=== PATIENT | male | born 1965 | race Caucasian/White ===

== ENCOUNTER → 2018-03-07 | Day surgery (SDC) | payer BC ==
[~2018-03-07] MED LIST: CURCUMIN1 GM PO; FENTANYL CITRATE/PF 100MCG/2 ML INJ ONE; FIBER CON PO; GLUCOSAMINE CH1 EAC2 PO; HYOSCYAMINE SULFATE 0.5 MG/ML AMP ONE; LIDOCAINE HCL 2% LOCAL INJ 5 ML SDV VIAL INJ ONE; LORATADINE10 MG PO; MIDAZOLAM HCL 2 MG/2 ML VIAL ONE; MULTIVITAMINS1 EAC7 PO; OMEGA 3 FISH O1 EACH PO; PROBIOTIC PO; PROPOFOL IV EMULSION 10 MG/ML 50 ML VIAL ONE
--- OUTSIDE RECORDS SUMMARY | 2018-03-07 07:15 | XMS REPORT | Clinical Summary ---
Author Author [facility] Organization [facility] Address Unknown Phone Unavailable Care Team Providers Care Pad Machine Feeder Name Role Phone Richa Lui MD PCP Allergies No Known Allergies Current Medications Prescription Sig. Disp. Refills Start End Date Status Date glucosamine sulfate Take 1 tablet by mouth Active (GLUCOSAMINE) 500 mg daily. tablet TURMERIC (CURCUMIN MISC) 1 tablet daily. 05/21/20 Discontin 17 ued polycarbophil (FIBERCON) Take 2 tablets by mouth 05/21/20 Discontin 625 mg tablet daily. 17 ued HYDROcodone-acetaminophen Take 1 tablet by mouth 30 tablet 0 05/21/20 05/31/20 (NORCO) 10-325 mg per every 4 (four) hours as 17 17 tablet needed for moderate pain for up to 10 days. Max Daily Amount: 6 tablets Active Problems Problem Noted Date Reducible right inguinal hernia 05/21/2017 Encounters Date Type Specialty Care Team Description 05/21/2017 [facility] General Surgery Pepito Castaneda MD Encounter 05/21/2017 Anesthesia General Surgery Eligio Rajput Event 05/21/2017 Procedure Pass General Surgery 05/21/2017 Surgery General Surgery Pepito Castaneda MD REPAIR, HERNIA, INGUINAL RIGHT WITH MESH 05/19/2017 Pre-Admit Pre-Admission Testing Pepito Castaneda MD Pre- op testing (Primary Testing Dx) Appointment after 03/06/2017 Family History Medical History Relation Name Comments Diabetes Brother Hypertension Brother Heart disease Father Stroke Father Heart disease Mother Relation Name Status Comments Brother Brother Father Mother Social History Tobacco Use Types Packs/Day Years Used Date Never Smoker Alcohol Use Drinks/Week oz/Week Comments No Sex Assigned at Date Recorded Not on file Last Filed Vital Signs Vital Sign Reading Time Taken Blood Pressure 146/68 05/21/2017 5:00 PM CDT Pulse 68 05/21/2017 5:00 PM CDT Temperature 36.7 C (98 F) 05/21/2017 11:31 AM CDT Respiratory Rate 18 05/21/2017 5:00 PM CDT Oxygen Saturation 98% 05/21/2017 5:00 PM CDT Inhaled Oxygen - - Concentration Weight 110 kg (242 lb) 05/21/2017 7:36 AM CDT Height 188 cm (6' 2") 05/21/2017 7:36 AM CDT Body Mass Index 31.07 05/21/2017 7:36 AM CDT Plan of Treatment Health Maintenance Due Date Last Done Comments COLONOSCOPY 2013 INFLUENZA VACCINE 06/22/2018 Implants Implanted Type Area Rail 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 Device Expiration Model / Identifier Date Serial / Lot Plug Hrnia Rpr Perfix Xl 1.6x2in - Surgical Right: [employer] 2021 [id number] / [id number] Mesh or Abdomen, / Implanted: 05/21/2017 (Quantity not Tissue Middle [id number] on file) Barrier Quadrant/N Products on Specific Procedures Procedure Name Priority Date/Time Associated Diagnosis Comments MI AN ELECTIVE Routine 05/21/2017 SUPRAGLOTTIC AIRWAY 8:58 AM CDT Procedure Note - Eligio Rajput - 05/21/2017 8:57 AM CDT Airway Date/Time: 05/21/2017 8:37 AM Performed by: ROSARIO VARNER Authorized by: ROSARIO VARNER Location: OR Urgency: Elective Difficult Airway: No Anesthesio logist: ROSARIO VARNER Other Anesthesia Staff: ELIGIO RAJPUT Performed by: anesthesio logist and other anesthesia staff Preoxygena breanna with 100% O2: Yes C-spine Precaution s Maintained Throughout : Yes Mask Ventilatio n: Easy mask Final Airway Type: Supraglott ic airway Final LMA: Unique LMA Size: 5 Number of Attempts at Approach: 1 REPAIR, HERNIA, INGUINAL 05/21/2017 Reducible right inguinal RIGHT WITH MESH 8:15 AM CDT hernia after 03/06/2017 Results * POC glucose (05/21/2017 12:56 PM) Component Value Ref Range POC glucose 153 (H) 65 - 99 mg/dL Comment: Meter ID: [id number] Publications Sales Representative: Naresh Nguyen Specimen Performing Laboratory [facility] DEPARTMENT OF PATHOLOGY AND GENOMIC MEDICINE [address] [place] [address] * ECG 12 lead (05/21/2017 12:54 PM) Only the most recent of 2 results within the time period is included. Component Value Ref Range Ventricular rate 75 Atrial rate 75 MI interval 174 QRSD interval 114 QT interval 426 QTC interval 475 P axis 1 61 QRS axis 1 -12 T wave axis 29 EKG impression Normal sinus rhythm-Incomplete right bundle branch block-Minimal voltage criteria for LVH, may be normal variant-Borderline ECG-In automated comparison with ECG of 21-MAY-2017 12:53,-Previous ECG has undetermined rhythm, needs review- Specimen Performing Laboratory [facility] [address] [place] [address] * CBC with platelet and differential (05/19/2017 4:18 PM) Component Value Ref Range WBC 6.21 4.50 - 11.00 k/uL RBC 5.05 4.40 - 6.00 m/uL HGB 15.0 14.0 - 18.0 g/dL HCT 44.5 41.0 - 51.0 % MCV 88.1 82.0 - 100.0 fL MCH 29.7 27.0 - 34.0 pg MCHC 33.7 31.0 - 37.0 g/dL RDW - SD 41.0 37.0 - 55.0 fL MPV 9.5 8.8 - 13.2 fL Platelet count 257 150 - 400 k/uL Nucleated RBC 0.00 /100 WBC Neutrophils 53.7 39.0 - 69.0 % Lymphocytes 31.1 25.0 - 45.0 % Monocytes 12.2 (H) 0.0 - 10.0 % Eosinophils 2.3 0.0 - 5.0 % Basophils 0.5 0.0 - 1.0 % Immature granulocytes 0.2Comment: "Immature granulocytes" 0.0 - 1.0 % (promyelocytes, myelocytes, metamyelocytes) Specimen Performing Laboratory Blood [facility] DEPARTMENT OF PATHOLOGY AND GENOMIC MEDICINE [address] [place] [address] after 03/06/2017 Insurance Payer Benefit Subscriber ID Type Phone Address Plan / Group BCBS BCBS xxxxxxxxx PPO CHOICE PPO/NELL RAPHAEL PPO
--- NOTE | 2018-03-07 10:49 | Operative Report ---
DATE OF PROCEDURE: March 07, 2018 REFERRING PHYSICIAN: Dr. Fairchild PROCEDURES PERFORMED 1. Esophagogastroduodenoscopy with biopsies. 2. Colonoscopy with polypectomy and biopsies. INDICATIONS FOR EGD: Heartburn, indigestion and nausea. INDICATIONS FOR COLONOSCOPY: Colorectal cancer screening, personal history of colon polyps, history of loose stools. MEDICATION: Patient was done under MAC. Please see anesthesiologist's note. PROCEDURE: With the patient in the left lateral decubitus position, the flexible fiberoptic Olympus gastroscope was introduced into the esophagus under direct visualization without any difficulty. There was some patchy erythema noted in the distal esophagus. A single erosion also was noted also in the distal esophagus. A focal nodularity was noted in the GE junction that was biopsied. The scope was then advanced with ease into the stomach traversing a small hiatal hernia. Mucosa overlying the antrum and the body revealed some patchy erythema, low-grade to moderate edema and biopsies were obtained and sent to stain for H. pylori. Pylorus appeared to be of normal contour and shape. It was intubated with ease. The scope was advanced all the way to the 2nd portion of the duodenum. Biopsies were obtained from the proximal 2nd portion to rule out sprue considering the patient's history of diarrhea. The mucosa overlying the duodenal bulb appeared to be within normal limits. The scope was then withdrawn back into the stomach and retroflexed. The mucosa overlying the fundus appeared to be within normal limits. A minute submucosal nodule was noted at the cardia that was biopsied. The scope was then straightened out. The stomach was decompressed. The scope was subsequently withdrawn. Patient tolerated the procedure well. IMPRESSION 1. Distal esophagitis. 2. Focal nodularity at gastroesophageal junction, biopsied. 3. Small hiatal hernia. 4. Submucosal nodule, cardia, biopsied. 5. Gastritis, biopsied. Biopsies sent to stain for Helicobacter pylori. 6. Rule out sprue. PLAN: Follow up histology. Initiate Protonix 40 mg 1 p.o. q.a.m. and a.c. Patient was then turned around. After adequate lubrication of the anal canal, a flexible fiberoptic Olympus colonoscope was inserted into the rectum with ease and advanced all the way to the cecum. Mucosa overlying the cecum appeared to be within normal limits. The ileocecal valve was intubated. The scope was advanced into the terminal ileum. Biopsies were obtained. The scope was then withdrawn back into the colon. It was then withdrawn slowly and a minute polyp was hot biopsied from the proximal ascending colon. The rest of the ascending, transverse and descending appeared to be within normal limits. There was some diverticular disease noted in the proximal sigmoid colon. Mucosa overlying the sigmoid and rectum revealed some patchy areas of erythema and low-grade to moderate edema, and biopsies were obtained. One polyp was snared from the distal sigmoid colon. The scope was then retroflexed into the distal rectum and small internal hemorrhoids were noted, none of which was actively bleeding. The scope was then straightened out. The rectosigmoid area, as well as the distal rectal area were decompressed. The scope was subsequently withdrawn after securing an adequate stool specimen that was sent for the appropriate stool studies. Patient tolerated the procedure well. IMPRESSION 1. Ascending colon polyp, hot biopsied. 2. Diverticulosis. 3. Sigmoid colon polyp, snared. 4. Proctosigmoiditis, biopsies obtained. 5. Internal hemorrhoids, none actively bleeding. PLAN: Follow up histology. Follow up stool studies. Initiate Bentyl 10 mg 1 p.o. t.i.d. VSL #3 DS 1 p.o. daily. Patient will need a followup colonoscopy in 3 years. Job#: [id number] MICAH
[2018-03-07 14:18] LABS: WBC,FECAL (FECAL LACTOFERRIN) POSITIVE (NEGATIVE)
[2018-03-07 14:19] LABS: C DIFFICILE TOXIN A&B AMP PROB **POSITIVE** (NEGATIVE)
== END | disposition home or self-care (01) ==
LOC: OR 07:13
PROVIDERS: ATTEND Internal Medicine Gastroenterology
DX: Z12.11 Encounter for screening for malignant neoplasm of colon (principal); D12.2 Benign neoplasm of ascending colon; K29.70 Gastritis, unspecified, without bleeding; K21.0 Gastro-esophageal reflux disease with esophagitis; K22.10 Ulcer of esophagus without bleeding; K44.9 Diaphragmatic hernia without obstruction or gangrene; K31.89 Other diseases of stomach and duodenum; K57.30 Diverticulosis of large intestine without perforation or abscess without bleeding; K63.89 Other specified diseases of intestine; K64.8 Other hemorrhoids; I45.10 Unspecified right bundle-branch block; E78.5 Hyperlipidemia, unspecified; N20.0 Calculus of kidney; Z01.810 Encounter for preprocedural cardiovascular examination; Z68.32 Body mass index [BMI] 32.0-32.9, adult; Z80.0 Family history of malignant neoplasm of digestive organs
CPT/HCPCS: 43239; 45380; 45384; 45385; 83630; 83993; 87045; 87177; 87328; 87493; 93005; J1980; J2001; J2250

== ENCOUNTER → 2022-06-22 | Day surgery (SDC) | payer BC ==
[~2022-06-22] MED LIST changes: +ASPIRIN81 MG PO; +COQ-1030 MG; -FENTANYL CITRATE/PF 100MCG/2 ML INJ ONE; +HOMOCYSTEINE F1 EACH; -HYOSCYAMINE SULFATE 0.5 MG/ML AMP ONE; +HYOSCYAMINE SULFATE 0.5 MG/ML INJ ONE; +MAGNESIUM OXID400 MG PO; +MELATONIN3 MG PO; -MIDAZOLAM HCL 2 MG/2 ML VIAL ONE; +NORVASC5 MG PO; +PROPOFOL IV EMULSION 10 MG/ML 20 ML VIAL ONE; -PROPOFOL IV EMULSION 10 MG/ML 50 ML VIAL ONE; +RED YEAST RICE600 MG; +VITAMIN C1000 MG PO; +VITAMIN D31 ML; +VITAMIN D310 MCG
[2022-06-22 12:55] VITALS: BP 124/74
== END | disposition home or self-care (01) ==
LOC: OR 11:42
PROVIDERS: ATTEND Internal Medicine Gastroenterology
DX: K22.70 Barrett's esophagus without dysplasia (principal); K63.5 Polyp of colon; K25.9 Gastric ulcer, unspecified as acute or chronic, without hemorrhage or perforation; K20.90 Esophagitis, unspecified without bleeding; K44.9 Diaphragmatic hernia without obstruction or gangrene; K21.9 Gastro-esophageal reflux disease without esophagitis; K31.89 Other diseases of stomach and duodenum; K31.A0 Gastric intestinal metaplasia, unspecified; K57.30 Diverticulosis of large intestine without perforation or abscess without bleeding; Z71.3 Dietary counseling and surveillance; G47.33 Obstructive sleep apnea (adult) (pediatric); I49.9 Cardiac arrhythmia, unspecified; I10 Essential (primary) hypertension; Z01.810 Encounter for preprocedural cardiovascular examination; Z01.812 Encounter for preprocedural laboratory examination; Z20.822 Contact with and (suspected) exposure to COVID-19; Z79.82 Long term (current) use of aspirin; Z79.899 Other long term (current) drug therapy; Z68.29 Body mass index [BMI] 29.0-29.9, adult; Z86.73 Personal history of transient ischemic attack (TIA), and cerebral infarction without residual deficits; Z86.16 Personal history of COVID-19; Z80.0 Family history of malignant neoplasm of digestive organs
CPT/HCPCS: 0223U; 36415; 43239; 45380; 93005; C9113; J1980; J2001; J2704; 45378